=== PATIENT | male | born 1985 | race Caucasian/White ===

== ENCOUNTER 2023-12-23 22:12 | Emergency (ER) | payer OTHER ==
[~2023-12-23] VITALS: Ht 177.8 cm; Wt 85.9 kg
[2023-12-23 23:01] VITALS: TEMP 97.3
[2023-12-23 23:11] VITALS: BP 147/95
[2023-12-23 23:33] VITALS: PULSE 91
== END 2023-12-23 23:33 | disposition home or self-care (01) ==
LOC: COL.ER 22:12
DX: S61.210A Laceration without foreign body of right index finger without damage to nail, initial encounter (principal); W26.9XXA Contact with unspecified sharp object(s), initial encounter; Y93.G3 Activity, cooking and baking; Y92.009 Unspecified place in unspecified non-institutional (private) residence as the place of occurrence of the external cause